=== PATIENT | female | born 1975 | race Caucasian/White ===

== ENCOUNTER 2019-02-19 12:05 | Emergency (ER) | payer SELFPAY ==
[~2019-02-19] VITALS: Ht 167.6 cm; Wt 84.0 kg
[~2019-02-19 12:05] MED LIST: DOCU100C33 PO; IBUP-1222 PO; OXYC1TAB7 PO; TRAM50TA2 PO
[2019-02-19 12:28] VITALS: BP 120/78
== END 2019-02-19 12:48 | disposition home or self-care (01) ==
LOC: ED 12:20
DX: K02.9 Dental caries, unspecified (principal); K08.89 Other specified disorders of teeth and supporting structures
CPT/HCPCS: 99283

== ENCOUNTER 2019-03-06 14:52 | Emergency (ER) | payer OTHER ==
[~2019-03-06] VITALS: Ht 167.6 cm; Wt 82.2 kg
[2019-03-06 14:55] VITALS: BP 126/92
--- NOTE | 2019-03-06 15:35 | NUR ---
Discharge instructions discussed with patient including when to return to emergency department, verbalizes understanding. Prescriptions provided with instruction for use.
== END 2019-03-06 15:40 | disposition home or self-care (01) ==
LOC: ED 15:30
DX: K08.89 Other specified disorders of teeth and supporting structures (principal)
CPT/HCPCS: 99283